=== PATIENT | male | born 1950 | race Caucasian/White ===

== ENCOUNTER 2018-12-29 09:08 | Day surgery (SDC) | payer MEDICARE ==
[~2018-12-29] VITALS: Ht 190.5 cm; Wt 117.9 kg
[~2018-12-29 09:08] MED LIST: ARTIFIC TEAR OS; ESCITALOPRAM OX10 MG PO; HYDROCODONE/ACE1 TAB PO; LACRI-LUBE OS; LISINOPRIL20 MG PO; LOPRESSOR50 M1 PO; LOPRESSOR50 MG OR; MEDDOSEPAK OR; OMEPRAZOLE20 MG PO; OXYCODONE10 MG OR; SIMVASTATIN20 MG PO; SKELAXIN800 MG OR; TOPROL XL25 MG OR; VALTREX1 GM OR; XANAX0.25 MG PO; ZANTAC150 MG OR; [UNRECOGNIZED DRUG - OTHER]
[2018-12-29 11:13] VITALS: BP 152/77
== END 2018-12-29 11:24 | disposition home or self-care (01) ==
LOC: ENDO 09:08 → ORM 09:30 → ENDO 09:40
PROVIDERS: ATTEND Internal Medicine Gastroenterology
PROC: 0DBM8ZX Excision of Descending Colon, Via Natural or Artificial Opening Endoscopic, Diagnostic (ICD-10-PCS; principal; 2018-12-29)
PROC: 0DBL8ZX Excision of Transverse Colon, Via Natural or Artificial Opening Endoscopic, Diagnostic (ICD-10-PCS; 2018-12-29)
PROC: 0DBN8ZX Excision of Sigmoid Colon, Via Natural or Artificial Opening Endoscopic, Diagnostic (ICD-10-PCS; 2018-12-29)
DX: D12.7 Benign neoplasm of rectosigmoid junction (principal); D12.4 Benign neoplasm of descending colon; D12.5 Benign neoplasm of sigmoid colon; D12.3 Benign neoplasm of transverse colon; D17.5 Benign lipomatous neoplasm of intra-abdominal organs; K57.30 Diverticulosis of large intestine without perforation or abscess without bleeding; K64.4 Residual hemorrhoidal skin tags; K64.8 Other hemorrhoids; I10 Essential (primary) hypertension